=== PATIENT | female | born 1985 | race African-American/Black ===

== ENCOUNTER 2020-05-27 22:56 | Inpatient (IN) | payer OTHER ==
[2020-05-27] MEDS ORDERED: ONDANSETRON 4 MG/2 ML VIAL IVPUSH ONE (23:36)
[2020-05-27] MEDS ORDERED: morphine CARPU-JECT 4 MG/1 ML DISP.SYRIN IVPUSH ONE ×2 (23:36→23:59)
[2020-05-27] MEDS ORDERED: FAMOTIDINE 20 MG/50 ML IVPB 20 MG/50 ML MG IVPB ONE ×2 (23:41→23:59)
[2020-05-27] MEDS ORDERED: SODIUM CHLORIDE 0.9% 500 ML INFUS.BAG IV ONE (23:41)
[2020-05-27] MEDS ORDERED: ONDANSETRON 4 MG/2 ML VIAL ONE (23:43)
[2020-05-27] MEDS ORDERED: morphine SULFATE 4 MG/ML VIAL ONE (23:43)
[2020-05-28] MEDS ORDERED: MAG HYDROX/AL HYDROX/SIMETH 30 ML UNIT-DOSE CUP PO ONE (00:27)
[2020-05-28] MEDS ORDERED: morphine CARPU-JECT 4 MG/1 ML DISP.SYRIN IVPUSH ONE ×2 (00:27→03:40)
[2020-05-28] MEDS ORDERED: ACETAMINOPHEN 1000 MG/100 ML VIAL (NON FORMULARY) IVPB ONE (00:27)
[2020-05-28] MEDS ORDERED: MORPHINE SULFATE 2 MG/ML VIAL ONE ×3 (00:32→18:12)
[2020-05-28] MEDS ORDERED: ACETAMINOPHEN INJECTION 100 ML IVPB ONE (00:32)
[2020-05-28] MEDS ORDERED: MAG HYDROX/AL HYDROX/SIMETH 30 ML UNIT-DOSE CUP ONE (00:32)
[2020-05-28 00:36] LABS: BASO % 0.1 % (0-2.0); EOS % 0.1 % (0-4.5); HEMATOCRIT 36.3 % (32.4-45.2); HEMOGLOBIN 11.8 GM/dL (10.7-15.3); LYMPH % 8.4 % (8-40); MCH 29.8 pg (25.7-33.7); MCHC 32.6 g/dl (32.0-36.0); MEAN CELL VOLUME 91.7 fl (80-96); MEAN PLT VOLUME 7.9 fl (7.5-11.1); MONO % 3.6 % (3.8-10.2); NEUT % 87.8 % (42.8-82.8); PLATELET COUNT 336 K/MM3 (134-434); RBC 3.96 M/mm3 (3.60-5.2); RDW 13.7 % (11.6-15.6); WHITE BLOOD COUNT 11.4 K/mm3 (4.0-10.0)
[2020-05-28 00:47] LABS: CHLORIDE 110 mmol/L (98-107); INR 0.98 (0.83-1.09); POTASSIUM 3.3 mmol/L (3.5-5.1); PROTHROMBIN TIME (PATIENT) 11.9 SEC (9.7-13.0); SODIUM 143 mmol/L (136-145)
[2020-05-28 00:49] LABS: ACTIVATED PTT 25.8 SECONDS (25.2-36.5)
[2020-05-28 00:50] LABS: ALBUMIN 3.7 g/dl (3.4-5.0); ANION GAP 8 MMOL/L (8-16); BLOOD UREA NITROGEN 10.7 mg/dL (7-18); CALCIUM 8.9 mg/dL (8.5-10.1); CO2 25 mmol/L (21-32); LIPASE 162 U/L (73-393)
[2020-05-28 00:51] LABS: GLUCOSE,RANDOM 116 mg/dL (74-106)
[2020-05-28 00:53] LABS: CREATININE 0.8 mg/dL (0.55-1.3); SGOT/AST 43 U/L (15-37); SGPT/ALT 22 U/L (13-61)
[2020-05-28 00:55] LABS: BILIRUBIN,TOTAL 0.3 mg/dL (0.2-1); TOT PROT 7.6 g/dl (6.4-8.2)
[2020-05-28 00:56] LABS: ALK PHOS 74 U/L (45-117)
[2020-05-28] MEDS ORDERED: ONDANSETRON 4 MG/2 ML VIAL IVPUSH ONE (03:40)
[2020-05-28] MEDS ORDERED: morphine SULFATE 4 MG/ML VIAL ONE (03:42)
[2020-05-28] MEDS ORDERED: ONDANSETRON 4 MG/2 ML VIAL ONE (03:42)
[2020-05-28 03:56] LABS: EPI CELLS >36 /uL (0-25.1); HYALINE CASTS 2 /uL (0-3.1); URINE APPEARANCE CLEAR; URINE BACTERIA >9,000 /uL (0-1359); URINE BILIRUBIN NEGATIVE (NEGATIVE); URINE COLOR YELLOW; URINE GLUCOSE (UA) NEGATIVE (NEGATIVE); URINE KETONE NEGATIVE (NEGATIVE); URINE LEUK ESTERASE NEGATIVE (NEGATIVE); URINE NITRITE POSITIVE (NEGATIVE); URINE PROTEIN NEGATIVE (NEGATIVE); URINE RBC 5 /uL (0-23.9); URINE UROBILINOGEN 0.2 mg/dL (0.2-1.0); URINE WBC 51 /uL (0-25.8)
[2020-05-28] MEDS ORDERED: SODIUM CHLORIDE 0.9% 500 ML INFUS.BAG IV ONE (04:26)
[2020-05-28] MEDS ORDERED: KETOROLAC TROMETHAMINE 30 MG/1 ML VIAL IVPUSH ONE (04:29)
[2020-05-28] MEDS ORDERED: CEFTRIAXONE 1 GM in DEXTROSE 5%-WATER - 100 ML IVPB ONE (04:29)
[2020-05-28] MEDS ORDERED: KETOROLAC TROMETHAMINE 30 MG/1 ML VIAL ONE ×2 (05:14→05:27)
[2020-05-28] MEDS ORDERED: SODIUM PHOSPHATE/NA BIPHOS 133 ML ENEMA PR ONE (05:37)
[2020-05-28] MEDS ORDERED: CEFOXITIN SODIUM 2 GM in DEXTROSE 5%-WATER - 100 ML IVPB SCH ×2 (09:00→10:00)
[2020-05-28] MEDS ORDERED: POTASSIUM CHLORIDE TABS 20 MEQ TABLET.ER (FP) PO ONE ×2 (09:00→09:38)
[2020-05-28] MEDS ORDERED: PANTOPRAZOLE SODIUM 40 MG/100 ML BAG IVPB ONE (09:39)
[2020-05-28] MEDS ORDERED: DOXYCYCLINE HYCLATE 100 MG VIAL ONE (09:39)
[2020-05-28] MEDS ORDERED: metroNIDAZOLE 250 MG TABLET PO SCH (10:00)
[2020-05-28] MEDS ORDERED: DOXYCYCLINE HYCLATE 100 MG CAPSULE PO SCH (10:00)
[2020-05-28] MEDS: MORPHINE SULFATE 2 MG/ML VIAL IVPUSH PRN ×2 (10:00→18:21)
[2020-05-28] MEDS: PANTOPRAZOLE SODIUM 40 MG VIAL IVPUSH SCH (10:15)
[2020-05-28] MEDS: DOXYCYCLINE INJECTION 100 MG in DEXTROSE 5%-WATER - 100 ML IVPB SCH ×2 (10:29→22:46)
[2020-05-28] MEDS ORDERED: ALBUTEROL SO4 HFA INHALER IH PRN (11:30)
[2020-05-28] MEDS ORDERED: ACETAMINOPHEN 325 MG TABLET (FP) ONE (13:49)
[2020-05-28] MEDS: ACETAMINOPHEN 500 MG TABLET (FP) PO PRN (13:52)
[2020-05-28] MEDS ORDERED: KETOROLAC TROMETHAMINE 15 MG/ML VIAL IVPUSH ONE (16:22)
[2020-05-28] MEDS ORDERED: CEFTRIAXONE 2 GM/100 ML BAG IVPB ONE (16:46)
[2020-05-28] MEDS ORDERED: KETOROLAC TROMETHAMINE 15 MG/ML VIAL ONE (16:46)
[2020-05-28] MEDS: CEFTRIAXONE 2 GM in DEXTROSE 5%-WATER 2 GM/100 ML BAG IVPB SCH (17:00)
[2020-05-28 18:53] LABS: PH,URINE 6.5 (5.0-8.0); URINE APPEARANCE Error; URINE BILIRUBIN NEGATIVE (NEGATIVE); URINE COLOR YELLOW; URINE GLUCOSE (UA) NEGATIVE (NEGATIVE); URINE KETONE TRACE (NEGATIVE); URINE LEUK ESTERASE NEGATIVE (NEGATIVE); URINE NITRITE NEGATIVE (NEGATIVE); URINE PROTEIN NEGATIVE (NEGATIVE)
[2020-05-29] MEDS ORDERED: MORPHINE SULFATE 2 MG/ML VIAL ONE (00:28)
[2020-05-29] MEDS: MORPHINE SULFATE 2 MG/ML VIAL IVPUSH PRN ×4 (00:33→18:18)
[2020-05-29 01:21] VITALS: BMI 22.3
[2020-05-29] MEDS: ACETAMINOPHEN 500 MG TABLET (FP) PO PRN (01:51)
[2020-05-29 08:31] LABS: HEMATOCRIT 34.9 % (32.4-45.2); HEMOGLOBIN 11.5 GM/dL (10.7-15.3); LYMPH % 29.9 % (8-40); MCH 30.4 pg (25.7-33.7); MCHC 33.1 g/dl (32.0-36.0); MEAN PLT VOLUME 7.9 fl (7.5-11.1); MONO % 8.3 % (3.8-10.2); NEUT % 56.8 % (42.8-82.8); PLATELET COUNT 285 K/MM3 (134-434); RBC 3.79 M/mm3 (3.60-5.2); RDW 13.6 % (11.6-15.6); WHITE BLOOD COUNT 7.2 K/mm3 (4.0-10.0)
[2020-05-29 08:37] LABS: INR 0.98 (0.83-1.09); PROTHROMBIN TIME (PATIENT) 11.9 SEC (9.7-13.0)
[2020-05-29 08:39] LABS: ACTIVATED PTT 25.6 SECONDS (25.2-36.5)
[2020-05-29 08:49] LABS: POTASSIUM 3.7 mmol/L (3.5-5.1)
[2020-05-29 08:56] LABS: ALBUMIN 3.1 g/dl (3.4-5.0); BLOOD UREA NITROGEN 7.3 mg/dL (7-18); CALCIUM 8.7 mg/dL (8.5-10.1); MAGNESIUM 2.2 mg/dL (1.8-2.4)
[2020-05-29] MEDS ORDERED: DEXTROSE 5%-WATER 100 ML IVPB ONE (08:58)
[2020-05-29 08:59] LABS: CREATININE 0.5 mg/dL (0.55-1.3)
[2020-05-29 09:00] LABS: PHOSPHOROUS 3.1 mg/dL (2.5-4.9)
[2020-05-29 09:01] LABS: BILIRUBIN,TOTAL 0.2 mg/dL (0.2-1); TOT PROT 6.5 g/dl (6.4-8.2)
[2020-05-29] MEDS: PANTOPRAZOLE SODIUM 40 MG VIAL IVPUSH SCH (09:20)
[2020-05-29] MEDS: CEFTRIAXONE 2 GM in DEXTROSE 5%-WATER 2 GM/100 ML BAG IVPB SCH (09:21)
[2020-05-29 09:41] LABS: HIV INTERPRETATION NEGATIVE (NEGATIVE)
[2020-05-29] MEDS: DOXYCYCLINE INJECTION 100 MG in DEXTROSE 5%-WATER - 100 ML IVPB SCH ×2 (09:52→22:32)
[2020-05-29] MEDS ORDERED: PNEUMOCOCCAL 23 VACCINE 0.5 ML VIAL IM ONE (10:00)
[2020-05-29] MEDS ORDERED: FLU VACCINE (FLULAVAL) PF 60 MCG/0.5 ML SYRINGE 2020-2021 IM ONE (10:00)
[2020-05-29] MEDS ORDERED: PNEUMOC 13-VAL CONJ-DIP CRM/PF 0.5 ML DISP.SYRIN IM ONE (10:00)
[2020-05-29] MEDS: oxyCODONE HCL 5 MG TABLET PO PRN ×3 (10:08→22:35)
[2020-05-29] MEDS ORDERED: FLUCONAZOLE 150 MG TABLET PO ONE (13:24)
[2020-05-29] MEDS: METHOCARBAMOL 500 MG TABLET PO SCH ×2 (14:44→22:30)
[2020-05-29] MEDS: POLYETHYLENE GLYCOL 3350 119 GM BTL PO SCH (14:51)
[2020-05-29] MEDS: SUCRALFATE 1 GM TABLET (FP) PO SCH ×2 (16:27→22:32)
[2020-05-29] MEDS ORDERED: PT OWN MED DRAWER 7, Y5N ONE (21:06)
[2020-05-30] MEDS: MORPHINE SULFATE 2 MG/ML VIAL IVPUSH PRN ×3 (00:47→12:44)
[2020-05-30] MEDS: oxyCODONE HCL 5 MG TABLET PO PRN ×3 (04:49→16:09)
[2020-05-30] MEDS ORDERED: PT OWN MED DRAWER 7, Y5N ONE ×3 (06:05→21:40)
[2020-05-30] MEDS: METHOCARBAMOL 500 MG TABLET PO SCH ×3 (06:32→21:43)
[2020-05-30] MEDS: SUCRALFATE 1 GM TABLET (FP) PO SCH ×4 (06:57→21:43)
[2020-05-30 07:05] LABS: HEMATOCRIT 40.7 % (32.4-45.2); HEMOGLOBIN 13.2 GM/dL (10.7-15.3); MCHC 32.4 g/dl (32.0-36.0); MEAN CELL VOLUME 92.7 fl (80-96); MEAN PLT VOLUME 7.9 fl (7.5-11.1); PLATELET COUNT 321 K/MM3 (134-434); RBC 4.39 M/mm3 (3.60-5.2); RDW 13.7 % (11.6-15.6); WHITE BLOOD COUNT 7.2 K/mm3 (4.0-10.0)
[2020-05-30 07:20] LABS: POTASSIUM 3.7 mmol/L (3.5-5.1)
[2020-05-30 07:23] LABS: BLOOD UREA NITROGEN 5.4 mg/dL (7-18); MAGNESIUM 2.3 mg/dL (1.8-2.4)
[2020-05-30 07:26] LABS: CREATININE 0.6 mg/dL (0.55-1.3); PHOSPHOROUS 3.3 mg/dL (2.5-4.9)
[2020-05-30] MEDS ORDERED: DEXTROSE 5%-WATER 100 ML IVPB ONE (09:41)
[2020-05-30] MEDS: POLYETHYLENE GLYCOL 3350 119 GM BTL PO SCH (09:45)
[2020-05-30] MEDS: PANTOPRAZOLE SODIUM 40 MG VIAL IVPUSH SCH (09:45)
[2020-05-30] MEDS: CEFTRIAXONE 2 GM in DEXTROSE 5%-WATER 2 GM/100 ML BAG IVPB SCH (09:45)
[2020-05-30] MEDS: DOXYCYCLINE INJECTION 100 MG in DEXTROSE 5%-WATER - 100 ML IVPB SCH ×2 (10:35→21:50)
[2020-05-30] MEDS ORDERED: oxyCODONE HCL 5 MG TABLET PO PRN (17:27)
[2020-05-30] MEDS ORDERED: POLYETHYLENE GLYCOL 3350 119 GM BTL PO PRN (20:20)
[2020-05-30] MEDS: ACETAMINOPHEN 500 MG TABLET (FP) PO PRN (22:05)
[2020-05-31] MEDS: oxyCODONE HCL 5 MG TABLET PO PRN ×4 (00:32→18:31)
[2020-05-31] MEDS: SUCRALFATE 1 GM TABLET (FP) PO SCH ×4 (06:39→21:11)
[2020-05-31] MEDS: METHOCARBAMOL 500 MG TABLET PO SCH ×3 (06:40→21:10)
[2020-05-31 07:51] LABS: BASO % 0.9 % (0-2.0); EOS % 3.2 % (0-4.5); HEMATOCRIT 40.2 % (32.4-45.2); HEMOGLOBIN 13.5 GM/dL (10.7-15.3); LYMPH % 29.1 % (8-40); MCH 30.6 pg (25.7-33.7); MCHC 33.5 g/dl (32.0-36.0); MEAN CELL VOLUME 91.4 fl (80-96); MEAN PLT VOLUME 7.5 fl (7.5-11.1); MONO % 11.6 % (3.8-10.2); NEUT % 55.2 % (42.8-82.8); PLATELET COUNT 357 K/MM3 (134-434); RDW 13.4 % (11.6-15.6)
[2020-05-31 08:07] LABS: POTASSIUM 4.1 mmol/L (3.5-5.1)
[2020-05-31 08:12] LABS: CALCIUM 9.5 mg/dL (8.5-10.1)
[2020-05-31 08:13] LABS: BLOOD UREA NITROGEN 5.4 mg/dL (7-18); MAGNESIUM 2.2 mg/dL (1.8-2.4)
[2020-05-31 08:16] LABS: CREATININE 0.6 mg/dL (0.55-1.3); PHOSPHOROUS 3.9 mg/dL (2.5-4.9)
[2020-05-31] MEDS ORDERED: DEXTROSE 5%-WATER 100 ML IVPB ONE (08:58)
[2020-05-31] MEDS ORDERED: PT OWN MED DRAWER 7, Y5N ONE ×2 (09:00→15:58)
[2020-05-31] MEDS: CEFTRIAXONE 2 GM in DEXTROSE 5%-WATER 2 GM/100 ML BAG IVPB SCH (09:11)
[2020-05-31] MEDS: ENOXAPARIN NA (PORCINE) 40 MG/0.4 ML DISP.SYRIN SQ SCH (09:13)
[2020-05-31] MEDS: PANTOPRAZOLE SODIUM 40 MG VIAL IVPUSH SCH (09:13)
[2020-05-31] MEDS: ACETAMINOPHEN 500 MG TABLET (FP) PO PRN ×2 (10:09→21:20)
[2020-05-31] MEDS: DOXYCYCLINE INJECTION 100 MG in DEXTROSE 5%-WATER - 100 ML IVPB SCH ×2 (10:10→21:10)
[2020-06-01] MEDS: oxyCODONE HCL 5 MG TABLET PO PRN ×5 (00:20→20:42)
[2020-06-01] MEDS: METHOCARBAMOL 500 MG TABLET PO SCH ×3 (06:25→21:27)
[2020-06-01] MEDS: SUCRALFATE 1 GM TABLET (FP) PO SCH ×4 (06:25→21:27)
[2020-06-01 07:40] LABS: BASO % 0.9 % (0-2.0); EOS % 2.3 % (0-4.5); HEMATOCRIT 41.3 % (32.4-45.2); HEMOGLOBIN 13.7 GM/dL (10.7-15.3); LYMPH % 32.7 % (8-40); MCH 30.2 pg (25.7-33.7); MCHC 33.2 g/dl (32.0-36.0); MEAN CELL VOLUME 91.1 fl (80-96); MEAN PLT VOLUME 7.6 fl (7.5-11.1); MONO % 9.6 % (3.8-10.2); NEUT % 54.5 % (42.8-82.8); PLATELET COUNT 393 K/MM3 (134-434); RBC 4.53 M/mm3 (3.60-5.2); RDW 13.6 % (11.6-15.6); WHITE BLOOD COUNT 6.2 K/mm3 (4.0-10.0)
[2020-06-01 08:00] LABS: POTASSIUM 4.4 mmol/L (3.5-5.1)
[2020-06-01 08:06] LABS: CALCIUM 9.3 mg/dL (8.5-10.1)
[2020-06-01 08:07] LABS: BLOOD UREA NITROGEN 6.3 mg/dL (7-18)
[2020-06-01 08:10] LABS: CREATININE 0.6 mg/dL (0.55-1.3)
[2020-06-01] MEDS ORDERED: DEXTROSE 5%-WATER 100 ML IVPB ONE (09:05)
[2020-06-01] MEDS: ENOXAPARIN NA (PORCINE) 40 MG/0.4 ML DISP.SYRIN SQ SCH (09:43)
[2020-06-01] MEDS: CEFTRIAXONE 2 GM in DEXTROSE 5%-WATER 2 GM/100 ML BAG IVPB SCH (10:09)
[2020-06-01] MEDS: PANTOPRAZOLE SODIUM 40 MG VIAL IVPUSH SCH (10:09)
[2020-06-01] MEDS: ACETAMINOPHEN 500 MG TABLET (FP) PO PRN (10:32)
[2020-06-01] MEDS: DOXYCYCLINE INJECTION 100 MG in DEXTROSE 5%-WATER - 100 ML IVPB SCH ×2 (10:33→21:29)
[2020-06-01] MEDS ORDERED: oxyCODONE HCL 5 MG TABLET PO PRN (15:21)
[2020-06-01] MEDS ORDERED: PT OWN MED DRAWER 7, Y5N ONE ×2 (16:16→21:20)
[2020-06-01] MEDS ORDERED: DOXYCYCLINE HYCLATE 100 MG CAPSULE PO ONE (21:51)
[2020-06-02] MEDS: oxyCODONE HCL 5 MG TABLET PO PRN ×5 (00:55→17:37)
[2020-06-02] MEDS ORDERED: PT OWN MED DRAWER 7, Y5N ONE (06:03)
[2020-06-02] MEDS: METHOCARBAMOL 500 MG TABLET PO SCH ×2 (06:07→16:31)
[2020-06-02] MEDS: SUCRALFATE 1 GM TABLET (FP) PO SCH ×2 (06:10→11:06)
[2020-06-02 06:59] LABS: EOS % 2.8 % (0-4.5); HEMOGLOBIN 13.2 GM/dL (10.7-15.3); LYMPH % 31.2 % (8-40); MCH 30.4 pg (25.7-33.7); MEAN CELL VOLUME 92.4 fl (80-96); PLATELET COUNT 291 K/MM3 (134-434); RBC 4.33 M/mm3 (3.60-5.2); RDW 13.8 % (11.6-15.6); WHITE BLOOD COUNT 6.3 K/mm3 (4.0-10.0)
[2020-06-02 07:17] LABS: POTASSIUM 3.5 mmol/L (3.5-5.1)
[2020-06-02 07:19] LABS: CALCIUM 9.5 mg/dL (8.5-10.1)
[2020-06-02 07:20] LABS: BLOOD UREA NITROGEN 10.3 mg/dL (7-18); MAGNESIUM 2.2 mg/dL (1.8-2.4)
[2020-06-02 07:23] LABS: CREATININE 0.8 mg/dL (0.55-1.3); PHOSPHOROUS 4.2 mg/dL (2.5-4.9)
[2020-06-02] MEDS ORDERED: DEXTROSE 5%-WATER 100 ML IVPB ONE (08:58)
[2020-06-02] MEDS: ENOXAPARIN NA (PORCINE) 40 MG/0.4 ML DISP.SYRIN SQ SCH (09:08)
[2020-06-02] MEDS: PANTOPRAZOLE SODIUM 40 MG VIAL IVPUSH SCH (11:05)
[2020-06-02] MEDS: CEFTRIAXONE 2 GM in DEXTROSE 5%-WATER 2 GM/100 ML BAG IVPB SCH (11:05)
[2020-06-02] MEDS: DOXYCYCLINE INJECTION 100 MG in DEXTROSE 5%-WATER - 100 ML IVPB SCH (11:05)
[2020-06-02] MEDS: ACETAMINOPHEN 500 MG TABLET (FP) PO PRN (13:28)
[2020-06-02 14:24] VITALS: BP 142/92; PULSE 92; TEMP 98.4
== END 2020-06-02 19:30 | disposition home or self-care (01) | DRG 463 ==
LOC: JER 22:56 → JERBED 05-28 06:37 → J7W 05-29 00:44
PROVIDERS: ADMIT Internal Medicine; ATTEND Internal Medicine
DX: N39.0 Urinary tract infection, site not specified (principal); R16.0 Hepatomegaly, not elsewhere classified; E87.2 Acidosis; K59.00 Constipation, unspecified; J45.909 Unspecified asthma, uncomplicated; B37.3 Candidiasis of vulva and vagina; K21.9 Gastro-esophageal reflux disease without esophagitis; N83.202 Unspecified ovarian cyst, left side; M54.30 Sciatica, unspecified side
CPT/HCPCS: 36415; 74177-TC; 76705-TC; 76830-TC; 80048; 80053; 80307; 81003; 83605; 83690; 83735; 84100; 84484; 84703; 85025; 85027; 85610; 85730; 86850; 86900; 86901; 87040; 87086; 87186; 87389; 87491; 87591; 87661; 93005; 93010; 99285-25; C9803; G0008; J0131; Q2036; U0003

== ENCOUNTER 2020-10-31 10:25 | Emergency (ER) | payer OTHER ==
[2020-10-31 11:15] VITALS: BP 149/90; PULSE 122; TEMP 99.7; BMI 21.0
[2020-10-31] MEDS ORDERED: KETOROLAC TROMETHAMINE 30 MG/1 ML VIAL IM ONE (11:19)
[2020-10-31] MEDS ORDERED: LORazepam 2 MG TABLET PO ONE (11:19)
[2020-10-31] MEDS ORDERED: KETOROLAC TROMETHAMINE 30 MG/1 ML VIAL ONE (11:20)
[2020-10-31] MEDS ORDERED: LORazepam 1 MG TABLET ONE (11:21)
== END 2020-10-31 13:10 | disposition left against medical advice (07) ==
LOC: JERFT 10:25 → JER 10:25 → JERFT 13:10
PROC: 3E0233Z Introduction of Anti-inflammatory into Muscle, Percutaneous Approach (ICD-10-PCS; principal; 2020-10-31)
DX: M54.5 Low back pain (principal); M79.604 Pain in right leg; R20.9 Unspecified disturbances of skin sensation
CPT/HCPCS: 99284-25

== ENCOUNTER 2021-06-30 08:38 | Emergency (ER) | payer OTHER ==
[2021-06-30 08:43] VITALS: BMI 22.8
[2021-06-30] MEDS ORDERED: SODIUM CHLORIDE 1,000 ML IV STA (09:27)
[2021-06-30] MEDS ORDERED: ACETAMINOPHEN 1000 MG/100 ML BAG IVPB ONE (09:27)
[2021-06-30] MEDS ORDERED: ACETAMINOPHEN INJECTION 100 ML IVPB ONE (09:51)
[2021-06-30 10:02] LABS: BASO % 0.8 % (0-2.0); EOS % 3.5 % (0-4.5); HEMATOCRIT 37.7 % (32.4-45.2); HEMOGLOBIN 12.4 GM/dL (10.7-15.3); LYMPH % 40.8 % (8-40); MCH 30.1 pg (25.7-33.7); MEAN CELL VOLUME 91.5 fl (80-96); MEAN PLT VOLUME 7.6 fl (7.5-11.1); MONO % 8.8 % (3.8-10.2); NEUT % 46.1 % (42.8-82.8); PLATELET COUNT 341 10^3/uL (134-434); RBC 4.13 M/mm3 (3.60-5.2); RDW 13.2 % (11.6-15.6); WHITE BLOOD COUNT 6.4 K/mm3 (4.0-10.0)
[2021-06-30 10:08] LABS: INR 0.87 (0.83-1.09)
[2021-06-30 10:27] LABS: CALCIUM 8.7 mg/dL (8.5-10.1)
[2021-06-30 10:28] LABS: ALBUMIN 3.5 g/dl (3.4-5.0); BLOOD UREA NITROGEN 10.7 mg/dL (7-18)
[2021-06-30 10:31] LABS: CREATININE 0.7 mg/dL (0.55-1.3)
[2021-06-30 10:32] LABS: BILIRUBIN,TOTAL 0.1 mg/dL (0.2-1); TOT PROT 7.1 g/dl (6.4-8.2)
[2021-06-30] MEDS ORDERED: morphine SULFATE 4 MG/ML VIAL ONE ×2 (11:09→12:41)
[2021-06-30] MEDS ORDERED: ONDANSETRON 4 MG/2 ML VIAL ONE (11:11)
[2021-06-30] MEDS ORDERED: ONDANSETRON 4 MG/2 ML VIAL IVPUSH ONE (11:43)
[2021-06-30] MEDS ORDERED: morphine CARPU-JECT 4 MG/1 ML DISP.SYRIN IVPUSH ONE ×2 (11:43→12:41)
[2021-06-30 11:45] LABS: EPI CELLS 15 /uL (0-25.1); HYALINE CASTS 2 /uL (0-3.1); PH,URINE 6.5 (5.0-8.0); URINE APPEARANCE CLOUDY; URINE BACTERIA >9,000 /uL (0-1359); URINE BILIRUBIN NEGATIVE (NEGATIVE); URINE COLOR YELLOW; URINE GLUCOSE (UA) NEGATIVE (NEGATIVE); URINE KETONE TRACE (NEGATIVE); URINE LEUK ESTERASE 1+ (NEGATIVE); URINE NITRITE POSITIVE (NEGATIVE); URINE PROTEIN 1+ (NEGATIVE); URINE RBC 6530 /uL (0-23.9); URINE WBC 134 /uL (0-25.8)
[2021-06-30] MEDS ORDERED: KETOROLAC TROMETHAMINE 60 MG/2 ML VIAL IVPUSH ONE (11:47)
[2021-06-30] MEDS ORDERED: KETOROLAC TROMETHAMINE 15 MG/ML VIAL ONE (11:47)
[2021-06-30] MEDS ORDERED: CEFTRIAXONE 1,000 MG in DEXTROSE 5%-WATER - 50 ML IVPB ONE (11:55)
[2021-06-30] MEDS ORDERED: CEFTRIAXONE 1 GM/50 ML BAG ONE (12:05)
[2021-06-30] MEDS ORDERED: PHENAZOPYRIDINE HCL 100 MG TABLET (FP) PO ONE (12:41)
[2021-06-30 13:49] VITALS: BP 100/55; PULSE 95; TEMP 98
== END 2021-06-30 14:31 | disposition home or self-care (01) ==
LOC: JER 08:38
PROC: 3E0333Z Introduction of Anti-inflammatory into Peripheral Vein, Percutaneous Approach (ICD-10-PCS; principal; 2021-06-30)
PROC: 3E03329 Introduction of Other Anti-infective into Peripheral Vein, Percutaneous Approach (ICD-10-PCS; 2021-06-30)
PROC: 3E0333Z Introduction of Anti-inflammatory into Peripheral Vein, Percutaneous Approach (ICD-10-PCS; 2021-06-30)
PROC: 3E033NZ Introduction of Analgesics, Hypnotics, Sedatives into Peripheral Vein, Percutaneous Approach (ICD-10-PCS; 2021-06-30)
PROC: 3E033NZ Introduction of Analgesics, Hypnotics, Sedatives into Peripheral Vein, Percutaneous Approach (ICD-10-PCS; 2021-06-30)
PROC: 3E033GC Introduction of Other Therapeutic Substance into Peripheral Vein, Percutaneous Approach (ICD-10-PCS; 2021-06-30)
PROC: 3E0337Z Introduction of Electrolytic and Water Balance Substance into Peripheral Vein, Percutaneous Approach (ICD-10-PCS; 2021-06-30)
DX: O03.9 Complete or unspecified spontaneous abortion without complication (principal); N30.01 Acute cystitis with hematuria
CPT/HCPCS: 36415; 76817-TC; 80053; 81003; 84702; 84703; 85025; 85610; 86850; 86900; 86901; 87086; 87186; 99284-25; J0131

== ENCOUNTER 2021-10-26 03:05 | Observation (INO) | payer OTHER ==
[2021-10-26] MEDS ORDERED: ONDANSETRON 4 MG/2 ML VIAL IVPUSH ONE ×2 (03:59→15:11)
[2021-10-26] MEDS ORDERED: ACETAMINOPHEN 1000 MG/100 ML BAG IVPB ONE (03:59)
[2021-10-26] MEDS ORDERED: MAG HYDROX/AL HYDROX/SIMETH 30 ML UNIT-DOSE CUP PO ONE (03:59)
[2021-10-26] MEDS ORDERED: DICYCLOMINE HCL 10 MG CAPSULE PO ONE (04:00)
[2021-10-26] MEDS ORDERED: LACTATED RINGERS SOLUTION 1,000 ML/1,000 ML INFUS.BAG IV STA (04:00)
[2021-10-26] MEDS ORDERED: morphine CARPU-JECT 4 MG/1 ML DISP.SYRIN IVPUSH ONE (04:01)
[2021-10-26] MEDS ORDERED: MAG HYDROX/AL HYDROX/SIMETH 30 ML UNIT-DOSE CUP ONE (04:04)
[2021-10-26] MEDS ORDERED: DICYCLOMINE HCL 10 MG CAPSULE ONE (04:04)
[2021-10-26] MEDS ORDERED: ACETAMINOPHEN INJECTION 100 ML IVPB ONE (04:04)
[2021-10-26] MEDS ORDERED: morphine SULFATE 4 MG/ML VIAL ONE (04:05)
[2021-10-26] MEDS ORDERED: ONDANSETRON 4 MG/2 ML VIAL ONE (04:05)
[2021-10-26 04:48] LABS: BASO % 0.8 % (0-2.0); EOS % 1.2 % (0-4.5); HEMATOCRIT 37.7 % (32.4-45.2); HEMOGLOBIN 12.4 GM/dL (10.7-15.3); LYMPH % 21.7 % (8-40); MCH 29.5 pg (25.7-33.7); MCHC 32.8 g/dl (32.0-36.0); MEAN CELL VOLUME 89.9 fl (80-96); MEAN PLT VOLUME 7.8 fl (7.5-11.1); MONO % 4.2 % (3.8-10.2); NEUT % 72.1 % (42.8-82.8); PLATELET COUNT 329 10^3/uL (134-434); RDW 13.6 % (11.6-15.6)
[2021-10-26 05:08] LABS: ALBUMIN 3.7 g/dl (3.4-5.0); CALCIUM 9.7 mg/dL (8.5-10.1)
[2021-10-26 05:10] LABS: CREATININE 0.7 mg/dL (0.55-1.3)
[2021-10-26 05:13] LABS: BILIRUBIN,TOTAL 0.2 mg/dL (0.2-1); TOT PROT 7.4 g/dl (6.4-8.2)
[2021-10-26] MEDS ORDERED: HALOPERIDOL LACTATE 5 MG/ML IM ONE ×2 (06:34→10:55)
[2021-10-26] MEDS ORDERED: HALOPERIDOL LACTATE 5 MG/ML ONE ×2 (06:45→11:01)
[2021-10-26] MEDS ORDERED: SODIUM CHLORIDE 0.9% 500 ML INFUS.BAG IV ONE ×2 (07:03→09:31)
[2021-10-26] MEDS ORDERED: KETOROLAC TROMETHAMINE 15 MG/ML VIAL IVPUSH ONE (10:24)
[2021-10-26] MEDS ORDERED: KETOROLAC TROMETHAMINE 15 MG/ML VIAL ONE (10:30)
[2021-10-26 12:26] LABS: PH,URINE 8.5 (5.0-8.0); URINE APPEARANCE CLEAR; URINE BILIRUBIN NEGATIVE (NEGATIVE); URINE COLOR YELLOW; URINE GLUCOSE (UA) NEGATIVE (NEGATIVE); URINE KETONE TRACE (NEGATIVE); URINE LEUK ESTERASE NEGATIVE (NEGATIVE); URINE NITRITE NEGATIVE (NEGATIVE); URINE PROTEIN TRACE (NEGATIVE); URINE UROBILINOGEN 0.2 mg/dL (0.2-1.0)
[2021-10-26 15:47] VITALS: BMI 22.4
[2021-10-26] MEDS: morphine SULFATE 4 MG/ML VIAL IVPUSH PRN ×2 (16:18→21:24)
[2021-10-26] MEDS: SODIUM CHLORIDE 1,000 ML IV SCH (18:47)
[2021-10-26] MEDS: ONDANSETRON 4 MG/2 ML VIAL IVPUSH PRN (21:25)
[2021-10-27] MEDS: morphine SULFATE 4 MG/ML VIAL IVPUSH PRN ×2 (04:37→09:14)
[2021-10-27] MEDS: SODIUM CHLORIDE 1,000 ML IV SCH ×2 (05:41→05:46)
[2021-10-27] MEDS: ONDANSETRON 4 MG/2 ML VIAL IVPUSH PRN (09:14)
[2021-10-27] MEDS ORDERED: ACETAMINOPHEN 1000 MG/100 ML BAG IVPB PRN ×2 (11:55→14:38)
[2021-10-27] MEDS ORDERED: PANTOPRAZOLE SODIUM 40 MG VIAL IVPUSH ONE (13:15)
[2021-10-27 13:25] LABS: BASO % 1.2 % (0-2.0); EOS % 1.9 % (0-4.5); HEMATOCRIT 34.5 % (32.4-45.2); HEMOGLOBIN 11.4 GM/dL (10.7-15.3); MCH 29.7 pg (25.7-33.7); MEAN CELL VOLUME 89.8 fl (80-96); MEAN PLT VOLUME 7.5 fl (7.5-11.1); MONO % 10.3 % (3.8-10.2); NEUT % 37.6 % (42.8-82.8); PLATELET COUNT 282 10^3/uL (134-434); RBC 3.85 M/mm3 (3.60-5.2); RDW 13.7 % (11.6-15.6); WHITE BLOOD COUNT 5.6 K/mm3 (4.0-10.0)
[2021-10-27 13:45] LABS: BLOOD UREA NITROGEN 9.6 mg/dL (7-18); CALCIUM 8.3 mg/dL (8.5-10.1)
[2021-10-27 13:46] LABS: MAGNESIUM 2.2 mg/dL (1.8-2.4)
[2021-10-27 13:49] LABS: CREATININE 0.6 mg/dL (0.55-1.3)
[2021-10-27 13:50] LABS: BILIRUBIN,TOTAL 0.2 mg/dL (0.2-1); TOT PROT 5.5 g/dl (6.4-8.2)
[2021-10-27 13:54] LABS: COCAINE, UR NEGATIVE (NEGATIVE); METHADONE, UR NEGATIVE (NEGATIVE); PHENCYCLIDINE,URINE NEGATIVE (NEGATIVE); URINE BENZODIAZEPINES NEGATIVE (NEGATIVE)
[2021-10-27 13:56] LABS: URINE AMPHETAMINES NEGATIVE (NEGATIVE); URINE BARBITURATES NEGATIVE (NEGATIVE)
[2021-10-27 14:10] LABS: OPIATES, URI POSITIVE (NEGATIVE)
[2021-10-27 14:11] LABS: ALBUMIN 2.7 g/dl (3.4-5.0)
[2021-10-27] MEDS ORDERED: KETOROLAC TROMETHAMINE 30 MG/1 ML VIAL IVPUSH PRN (14:31)
[2021-10-27 15:21] VITALS: BP 118/76; PULSE 68; TEMP 98.3
[2021-10-27] MEDS ORDERED: SUCRALFATE 1 GM TABLET (FP) PO SCH (18:00)
[2021-10-28] MEDS ORDERED: PANTOPRAZOLE SODIUM 40 MG VIAL IVPUSH SCH (10:00)
== END 2021-10-27 16:40 | disposition left against medical advice (07) ==
LOC: JER 03:05 → INTOOBSV 11:33 → UNDOADMOB 11:33 → JERBED 11:33 → J5S 16:07 → JERBED 16:07 → J5S 10-27 14:41 → JERBED 10-27 14:41
PROVIDERS: ADMIT Internal Medicine; ATTEND Nurse Practitioner Acute Care
PROC: 3E033NZ Introduction of Analgesics, Hypnotics, Sedatives into Peripheral Vein, Percutaneous Approach (ICD-10-PCS; principal; 2021-10-27)
PROC: 3E033GC Introduction of Other Therapeutic Substance into Peripheral Vein, Percutaneous Approach (ICD-10-PCS; 2021-10-27)
PROC: 3E023GC Introduction of Other Therapeutic Substance into Muscle, Percutaneous Approach (ICD-10-PCS; 2021-10-27)
PROC: 3E0333Z Introduction of Anti-inflammatory into Peripheral Vein, Percutaneous Approach (ICD-10-PCS; 2021-10-27)
PROC: 3E0337Z Introduction of Electrolytic and Water Balance Substance into Peripheral Vein, Percutaneous Approach (ICD-10-PCS; 2021-10-27)
DX: R10.13 Epigastric pain (principal); R11.2 Nausea with vomiting, unspecified; R10.84 Generalized abdominal pain; R63.30 Feeding difficulties, unspecified; Z91.013 Allergy to seafood; Z87.898 Personal history of other specified conditions; Z88.8 Allergy status to other drugs, medicaments and biological substances; J30.2 Other seasonal allergic rhinitis
CPT/HCPCS: 36415; 74176-TC; 74177-TC; 80053; 80307; 81003; 83690; 83735; 84703; 85025; 85610; 85730; 86850; 86900; 86901; 87086; 93005; 93010; 96361; 96372; 96374; 96375; 96376; 99285-25; C9803-CS; G0378; Q9967; U0003; U0005

== ENCOUNTER → 2023-08-18 | Day surgery (SDC) | payer OTHER | END | disposition home or self-care (01) | LOC: JRADUS-SUR 09:02 | PROVIDERS: ATTEND Family Medicine | PROC: 0H9T0ZX Drainage of Right Breast, Open Approach, Diagnostic (ICD-10-PCS; principal; 2023-08-18) | DX: D24.1 Benign neoplasm of right breast (principal); N60.11 Diffuse cystic mastopathy of right breast | CPT/HCPCS: 19083; 19084; 76098-TC-FY; 77065-TC; 87899; A4648 ==

== ENCOUNTER 2024-05-07 11:03 | Observation (INO) | payer OTHER ==
[2024-05-07 11:38] LABS: BASO % 0.5 % (0-2.0); EOS % 0.3 % (0-4.5); HEMATOCRIT 39.2 % (32.4-45.2); LYMPH % 28.5 % (8-40); MCH 30.5 pg (25.7-33.7); MCHC 33.1 g/dl (32.0-36.0); MEAN CELL VOLUME 92.1 fl (80-96); MEAN PLT VOLUME 7.7 fl (7.5-11.1); MONO % 5.4 % (3.8-10.2); NEUT % 65.3 % (42.8-82.8); PLATELET COUNT 377 10^3/uL (134-434); RBC 4.26 M/mm3 (3.60-5.2); RDW 13.7 % (11.6-15.6); WHITE BLOOD COUNT 5.6 K/mm3 (4.0-10.0)
[2024-05-07] MEDS ORDERED: morphine SULFATE 4 MG/ML VIAL ONE ×2 (11:40→18:16)
[2024-05-07] MEDS ORDERED: FAMOTIDINE 20 MG/50 ML IVPB 20 MG/50 ML MG IVPB ONE (11:40)
[2024-05-07] MEDS ORDERED: ONDANSETRON 4 MG/2 ML VIAL ONE (11:40)
[2024-05-07] MEDS: LACTATED RINGERS SOLUTION 1000 ML INFUS.BAG IV ONE (11:50)
[2024-05-07] MEDS: morphine CARPU-JECT 4 MG/1 ML DISP.SYRIN IVPUSH ONE ×2 (11:50→18:26)
[2024-05-07] MEDS: ONDANSETRON 4 MG/2 ML VIAL IVPUSH ONE (11:50)
[2024-05-07] MEDS: FAMOTIDINE 20 MG/50 ML IVPB 20 MG/50 ML MG IVPB ONE (11:50)
[2024-05-07 12:12] LABS: CHLORIDE 110 mmol/L (98-107); SODIUM 140 mmol/L (136-145)
[2024-05-07 12:13] LABS: CALCIUM 9.7 mg/dL (8.5-10.1)
[2024-05-07 12:14] LABS: ALBUMIN 3.8 g/dl (3.4-5.0); ANION GAP 5 mmol/L (4-13); BLOOD UREA NITROGEN 10.8 mg/dL (7-18); CO2 25 mmol/L (21-32); GLUCOSE,RANDOM 142 mg/dL (74-106); POTASSIUM 6.2 mmol/L (3.5-5.1)
[2024-05-07 12:17] LABS: CREATININE 0.8 mg/dL (0.55-1.3); SGOT/AST 40 U/L (15-37); SGPT/ALT 18 U/L (13-61)
[2024-05-07 12:18] LABS: BILIRUBIN,TOTAL 0.3 mg/dL (0.2-1)
[2024-05-07 12:20] LABS: ALK PHOS 70 U/L (45-117); LACTIC ACID 2.4 mmol/L (0.4-2.0)
[2024-05-07] MEDS ORDERED: HYDROmorphone HCl 2 MG/ML VIAL ONE (12:25)
[2024-05-07] MEDS: HYDROmorphone HCl 2 MG/ML VIAL IVPUSH ONE (12:29)
[2024-05-07] MEDS ORDERED: HALOPERIDOL LACTATE 5 MG/ML ONE (13:10)
[2024-05-07] MEDS: HALOPERIDOL LACTATE 5 MG/ML IM ONE (13:31)
[2024-05-07 14:25] LABS: CALCIUM 9.3 mg/dL (8.5-10.1)
[2024-05-07 14:26] LABS: ALBUMIN 3.5 g/dl (3.4-5.0); BLOOD UREA NITROGEN 10.8 mg/dL (7-18)
[2024-05-07 14:29] LABS: CREATININE 0.7 mg/dL (0.55-1.3)
[2024-05-07 14:30] LABS: BILIRUBIN,TOTAL 0.2 mg/dL (0.2-1); TOT PROT 6.8 g/dl (6.4-8.2)
[2024-05-07] MEDS ORDERED: diphenhydrAMINE HCL 25 MG CAPSULE (FP) PO ONE (16:23)
[2024-05-07] MEDS ORDERED: ACETAMINOPHEN INJECTION 100 ML ONE (17:50)
[2024-05-07] MEDS ORDERED: MAG HYDROX/AL HYDROX/SIMETH 30 ML UNIT-DOSE CUP ONE (17:51)
[2024-05-07] MEDS: ACETAMINOPHEN 1000 MG/100 ML BAG IVPB ONE (18:00)
[2024-05-07] MEDS: MAG HYDROX/AL HYDROX/SIMETH 30 ML UNIT-DOSE CUP PO ONE (18:01)
[2024-05-07] MEDS ORDERED: PANTOPRAZOLE SODIUM 40 MG/100 ML BAG IVPB ONE (18:14)
[2024-05-07] MEDS: PANTOPRAZOLE SODIUM 40 MG VIAL IVPUSH ONE (18:26)
[2024-05-07 20:29] VITALS: BMI 21.7
[2024-05-07] MEDS: SODIUM PHOSPHATE/NA BIPHOS 133 ML ENEMA RC ONE (20:38)
[2024-05-07] MEDS: POLYETHYLENE GLYCOL (HEALTHYLAX) 3350 17 GM PACKET PO ONE (20:39)
[2024-05-07] MEDS ORDERED: IBUPROFEN 400 MG TABLET (FP) PO ONE (21:04)
[2024-05-08] MEDS: LACTATED RINGERS SOLUTION 1,000 ML/1,000 ML INFUS.BAG IV SCH (01:08)
[2024-05-08] MEDS: GABAPENTIN 400 MG CAPSULE PO SCH (05:40)
[2024-05-08] MEDS: ACETAMINOPHEN 500 MG TABLET (FP) PO PRN (07:07)
[2024-05-08 07:30] VITALS: RESP 18
[2024-05-08 08:24] LABS: BASO % 0.4 % (0-2.0); HEMATOCRIT 36.8 % (32.4-45.2); HEMOGLOBIN 12.3 GM/dL (10.7-15.3); LYMPH % 20.5 % (8-40); MCH 31.1 pg (25.7-33.7); MCHC 33.3 g/dl (32.0-36.0); MEAN CELL VOLUME 93.5 fl (80-96); MEAN PLT VOLUME 7.7 fl (7.5-11.1); MONO % 6.8 % (3.8-10.2); NEUT % 72.3 % (42.8-82.8); PLATELET COUNT 317 10^3/uL (134-434); RBC 3.94 M/mm3 (3.60-5.2); RDW 13.2 % (11.6-15.6); WHITE BLOOD COUNT 8.1 K/mm3 (4.0-10.0)
[2024-05-08 08:46] LABS: POTASSIUM 3.5 mmol/L (3.5-5.1)
[2024-05-08 08:53] LABS: ALBUMIN 3.4 g/dl (3.4-5.0); BLOOD UREA NITROGEN 7.8 mg/dL (7-18); MAGNESIUM 2.1 mg/dL (1.8-2.4)
[2024-05-08 08:56] LABS: CREATININE 0.6 mg/dL (0.55-1.3)
[2024-05-08 08:57] LABS: PHOSPHOROUS 2.3 mg/dL (2.5-4.9)
[2024-05-08 08:58] LABS: BILIRUBIN,TOTAL 0.3 mg/dL (0.2-1)
[2024-05-08 09:01] LABS: TOT PROT 6.8 g/dl (6.4-8.2)
[2024-05-08 09:38] LABS: EPI CELLS >36 /uL (0-25.1); HYALINE CASTS 10 /uL (0-3.1); PH,URINE 6.5 (5.0-8.0); URINE APPEARANCE TURBID; URINE BACTERIA >9,000 /uL (0-1359); URINE BILIRUBIN NEGATIVE (NEGATIVE); URINE COLOR DK YELLOW; URINE GLUCOSE (UA) NEGATIVE (NEGATIVE); URINE KETONE 2+ (NEGATIVE); URINE LEUK ESTERASE 1+ (NEGATIVE); URINE NITRITE NEGATIVE (NEGATIVE); URINE PROTEIN 1+ (NEGATIVE); URINE RBC 75 /uL (0-23.9); URINE WBC 67 /uL (0-25.8)
[2024-05-08] MEDS: BISACODYL 5 MG TABLET.DR (FP) PO ONE (09:38)
[2024-05-08] MEDS: KETOROLAC TROMETHAMINE 30 MG/1 ML VIAL IVPUSH ONE (09:39)
[2024-05-08] MEDS: SENNOSIDES 8.6MG TABLET (FP) PO SCH (09:39)
[2024-05-08] MEDS: ENOXAPARIN NA (PORCINE) 40 MG/0.4 ML DISP.SYRIN SQ SCH (09:40)
[2024-05-08] MEDS: POLYETHYLENE GLYCOL (HEALTHYLAX) 3350 17 GM PACKET PO SCH (09:40)
[2024-05-08] MEDS: PANTOPRAZOLE SODIUM 40 MG VIAL IVPUSH SCH (09:40)
[2024-05-08] MEDS: CYCLOBENZAPRINE HCL 10 MG TABLET (FP) PO SCH (09:40)
[2024-05-08 10:20] LABS: URINE CRYSTALS AMORPHOUS URATE /hpf
[2024-05-08 10:55] LABS: METHADONE, UR NEGATIVE (NEGATIVE)
[2024-05-08 10:56] LABS: COCAINE, UR NEGATIVE (NEGATIVE); PHENCYCLIDINE,URINE NEGATIVE (NEGATIVE); URINE BARBITURATES NEGATIVE (NEGATIVE); URINE BENZODIAZEPINES NEGATIVE (NEGATIVE)
[2024-05-08 11:22] LABS: OPIATES, URI POSITIVE (NEGATIVE); URINE AMPHETAMINES POSITIVE (NEGATIVE)
[2024-05-08] MEDS ORDERED: ACETAMINOPHEN 500 MG TABLET (FP) PO SCH (12:00)
[2024-05-08 16:01] VITALS: BP 104/69; PULSE 94; TEMP 99.1
== END 2024-05-08 13:30 | disposition home or self-care (01) ==
LOC: JER 11:03 → JERBED 18:31 → J7W 19:53
PROVIDERS: ADMIT Internal Medicine
PROC: 0DB68ZX Excision of Stomach, Via Natural or Artificial Opening Endoscopic, Diagnostic (ICD-10-PCS; principal; 2024-05-07)
PROC: 3E033GC Introduction of Other Therapeutic Substance into Peripheral Vein, Percutaneous Approach (ICD-10-PCS; 2024-05-07)
PROC: 3E033NZ Introduction of Analgesics, Hypnotics, Sedatives into Peripheral Vein, Percutaneous Approach (ICD-10-PCS; 2024-05-07)
PROC: 3E023GC Introduction of Other Therapeutic Substance into Muscle, Percutaneous Approach (ICD-10-PCS; 2024-05-07)
PROC: 3E0337Z Introduction of Electrolytic and Water Balance Substance into Peripheral Vein, Percutaneous Approach (ICD-10-PCS; 2024-05-07)
DX: K59.00 Constipation, unspecified (principal); R10.13 Epigastric pain; K21.9 Gastro-esophageal reflux disease without esophagitis; F10.21 Alcohol dependence, in remission; M79.7 Fibromyalgia; J45.909 Unspecified asthma, uncomplicated; Z87.440 Personal history of urinary (tract) infections; Z91.013 Allergy to seafood; Z88.8 Allergy status to other drugs, medicaments and biological substances; Z87.19 Personal history of other diseases of the digestive system; Z86.19 Personal history of other infectious and parasitic diseases
CPT/HCPCS: 36415; 74177-TC; 80053; 80307; 81003; 83036; 83605; 83690; 83735; 84100; 84703; 85025; 88305-TC; 88342-TC; 93005; 93010; 96361; 96365; 96372; 96375; 96376; 99285-25; G0378; J0131; Q9967